=== PATIENT | male | born 1930 | race Caucasian/White ===

== ENCOUNTER 2017-07-02 11:41 | Inpatient (IN) | payer OTHER ==
[~2017-07-02] VITALS: Ht 175.3 cm; Wt 101.2 kg
--- NOTE | ~2017-07-02 | HC ---
[facility] [place] [place] [address] CONSULTATION Name: DONNELL ORTIZ Room #: 455-P ADM IN M.R.#: [id number] Admission: 07/02/17 Attend Phys: Ирина Zhang Discharge: Date of : [birth year] Report #: [id number] THIS REPORT FOR: //name// CC: FAM unknown Ирина Zhang DATE OF SERVICE: 07/02/2017 ATTENDING PHYSICIAN: Dr. Quiros. REASON FOR CONSULTATION: Elevated creatinine. HISTORY OF PRESENT ILLNESS: An 87-year-old gentleman, reasonably healthy except for some prostatic hypertrophy, was initially hospitalized several months ago at [facility] with obstructive uropathy, urinary tract infection, was treated. He developed very severe C. diff, which lingered for some time. He is finally over that. He has recently finished taking oral vancomycin. Has no more diarrhea. He is otherwise doing well, was out working in the yard yesterday, came inside and developed shaking chills, was taken to [facility] and there, was found to have a urinary tract infection, developed worsening leukocytosis and his creatinine, which was 1.3, diana to 1.7. He was transferred. PAST MEDICAL HISTORY: Has COPD, history of atrial fibrillation, recent UTI and C. diff as well as the prostatic hypertrophy. MEDICATIONS: As mentioned, his home medications include Breo Ellipta inhaler, furosemide 40 mg b.i.d., levothyroxine 150 mcg daily, Lopressor 50 mg daily, potassium 10 mEq b.i.d., simvastatin 40 mg daily, Flomax 0.4 mg daily, Spiriva, and Zanaflex. He also was treated with ceftriaxone IV at [facility] yesterday. Apparently, he also received some Zosyn and Lovenox. SOCIAL HISTORY: Former smoker. Lives at home with his significant other. has passed. He is . FAMILY HISTORY: Unremarkable. REVIEW OF SYSTEMS: GENERAL: He is feeling reasonably well. EYES: His vision is okay. ENT: Hearing okay, swallows okay. ENDOCRINE: No diabetes. He does have thyroid disease, on replacement. RESPIRATORY: No shortness of breath, pleuritic pain, hemoptysis. CARDIAC: No chest pain or swelling in the legs. GASTROINTESTINAL: No nausea, vomiting, diarrhea or bloody stools. [facility] [address] [place] [address] CONSULTATION Name: DONNELL ORTIZ Room #: 455-P [facility] IN M.R.#: [id number] Admission: 07/02/17 Attend Phys: Ирина Zhang Discharge: Date of : [birth year] Report #: [id number] GENITOURINARY: Little bit of a sluggish stream, but not too bad. NEUROLOGIC: Denies seizure, syncope or stroke. He did have some head trauma years ago that did require some surgery. PHYSICAL EXAMINATION: GENERAL: Somewhat overweight elderly gentleman, gave me a reasonably good history. SKIN: Unremarkable. SKELETAL: He is overweight. HEENT: Extraocular movements are full. Vision intact. Hearing intact. Mucous membranes moist. NECK: Supple, no JVD. CHEST: Clear to auscultation. HEART: Regular. ABDOMEN: Soft and nontender. EXTREMITIES: Show no peripheral edema. NEUROLOGIC: Grossly intact. LABORATORY DATA: Hemoglobin 12.9, white count 19.1, potassium 4, creatinine 1.8, BUN 25, albumin 2.6. ASSESSMENT AND PLAN: 1. Chronic kidney disease, appears to have a chronic kidney disease with a stated baseline creatinine of 1.3, although this may indeed be a little bit elevated with his acute illness. Now, he is up to 1.7 with urinary infection. IV fluids should take care of this problem. Renal sonogram certainly would not hurt just to rule out any sort of obstructive situation here and appropriate antibiotics per primary service. Recognize that he could indeed have somewhat of a resistant organism as he has recently been treated with quite a bit of antibiotics apparently. 2. Benign prostatic hypertrophy, on Flomax. 3. Chronic obstructive pulmonary disease, on inhalers. 4. History of atrial fibrillation. I do not see any EKGs at the current time. <ELECTRONICALLY SIGNED> By: Matt Garduno MD 07/04/17 1102 [id number] Matt Garduno MD /nt
[2017-07-02 12:14] VITALS: BP 113/59
[2017-07-02 16:08] LABS: HEMATOCRIT 38.8 % (42.0-52.0); HEMOGLOBIN 12.9 gm/dL (14.0-18.0); MCH 31.5 pg (26.0-34.0); MCHC 33.3 g/dL (28.0-37.0); MCV 94.4 fL (80.0-100.0); RBC 4.11 mil/uL (4.50-6.00); RDW 14.5 % (10.5-14.5); WBC 19.1 thou/uL (4.0-11.0)
[2017-07-02 16:16] LABS: CALCIUM 8.2 mg/dL (8.5-10.1); CREATININE 1.8 mg/dL (0.7-1.3)
[2017-07-02 16:17] VITALS: BP 141/58
[2017-07-02 16:22] LABS: ALBUMIN 2.6 g/dL (3.4-5.0); TOTAL BILIRUBIN 0.8 mg/dL (<0.1-1.0); TOTAL PROTEIN 5.8 g/dL (6.4-8.2)
[2017-07-02] MEDS ORDERED: VANCOMYCIN HCL125 MG PO (16:27)
[2017-07-02] MEDS ORDERED: POTASSIUM CHLO10 MEQ PO (16:29)
[2017-07-02] MEDS ORDERED: LASIX 40 MG TAB40 M2 PO (16:30)
[2017-07-02] MEDS ORDERED: METOPROLOL SUCC50 MG PO (16:31)
[2017-07-02] MEDS ORDERED: VENTOLIN HFA 1818 GM INH (16:34)
[2017-07-02] MEDS ORDERED: FLOMAX0.4 MG PO (16:34)
[2017-07-02] MEDS ORDERED: SYNTHROID150 MCG PO (16:35)
[2017-07-02] MEDS ORDERED: SIMVASTATIN40 MG PO (16:36)
[2017-07-02] MEDS ORDERED: MELATONIN5 M1 PO (16:40)
[2017-07-02 19:51] VITALS: BP 121/50
[2017-07-02 20:14] LABS: URINE BILIRUBIN NEGATIVE (Negative); URINE BLOOD 1+ (Negative); URINE CLARITY CLEAR; URINE COLOR YELLOW; URINE GLUCOSE-RANDOM* NEGATIVE (Negative); URINE KETONES NEGATIVE (Negative); URINE LEUKOCYTES 3+ (Negative); URINE NITRITE NEGATIVE (Negative); URINE PROTEIN (DIPSTICK) TRACE (Negative); URINE SPECIFIC GRAVITY 1.015 (1.005-1.035); URINE UROBILINOGEN 0.2 E.U./dl (0.2-1.0)
[2017-07-02 20:50] LABS: CASTS None Seen /LPF (None Seen); CRYSTALS None Seen /LPF (None Seen); SQUAMOUS 4-10 Moderate /LPF (0-3)
[2017-07-02 20:51] LABS: URINE RBC 0-2 Rare /HPF (0-2)
[2017-07-02 20:52] LABS: BACTERIA 1-9 Few /HPF (None Seen)
[2017-07-02 23:38] VITALS: BP 129/56
[2017-07-03 03:47] VITALS: BP 107/71
[2017-07-03 05:23] LABS: BASOPHILS 0.3 % (0.0-2.0); EOSINOPHILS 0.4 % (0.0-3.0); HEMATOCRIT 39.2 % (42.0-52.0); HEMOGLOBIN 12.9 gm/dL (14.0-18.0); LYMPHOCYTES 8.8 % (24.0-44.0); MCH 31.4 pg (26.0-34.0); MCV 95.1 fL (80.0-100.0); PLATELET COUNT 140 thou/uL (150-400); POLYS 83.5 % (36.0-66.0); RBC 4.12 mil/uL (4.50-6.00); RDW 14.6 % (10.5-14.5); WBC 15.5 thou/uL (4.0-11.0)
[2017-07-03 05:33] LABS: ALBUMIN 2.5 g/dL (3.4-5.0); CALCIUM 8.5 mg/dL (8.5-10.1); CREATININE 1.6 mg/dL (0.7-1.3); PHOSPHORUS 2.2 mg/dL (2.5-4.9); POTASSIUM 3.9 mmol/L (3.5-5.1)
[2017-07-03 08:25] VITALS: BP 156/49
[2017-07-03 16:20] VITALS: BP 142/86
[2017-07-03 20:21] VITALS: BP 153/85
[2017-07-04 03:15] VITALS: BP 140/83
[2017-07-04 06:13] LABS: ALBUMIN 2.7 g/dL (3.4-5.0); CALCIUM 8.7 mg/dL (8.5-10.1); CREATININE 1.2 mg/dL (0.7-1.3); PHOSPHORUS 2.1 mg/dL (2.5-4.9); POTASSIUM 3.7 mmol/L (3.5-5.1)
[2017-07-04 08:33] LABS: HEMATOCRIT 42.4 % (42.0-52.0); MCH 31.4 pg (26.0-34.0); MCHC 33.1 g/dL (28.0-37.0); MCV 94.9 fL (80.0-100.0); RBC 4.47 mil/uL (4.50-6.00); RDW 14.4 % (10.5-14.5); WBC 17.9 thou/uL (4.0-11.0)
[2017-07-04 09:31] VITALS: BP 149/76
[2017-07-04] MEDS ORDERED: CEFDINIR300 MG PO (11:21)
[2017-07-04 12:19] VITALS: BP 149/76
== END 2017-07-04 13:03 | disposition home or self-care (01) | DRG 871 ==
LOC: 4W 11:41 → ENTRNSPT 07-04 12:48 → EDTRNSPTSTS 07-04 12:51 → 4W 07-04 13:03
PROVIDERS: Hospitalist; Internal Medicine Nephrology
DX: A41.9 Sepsis, unspecified organism (principal); J96.01 Acute respiratory failure with hypoxia; E43 Unspecified severe protein-calorie malnutrition; N17.9 Acute kidney failure, unspecified; N39.0 Urinary tract infection, site not specified; N12 Tubulo-interstitial nephritis, not specified as acute or chronic; I48.91 Unspecified atrial fibrillation; N18.9 Chronic kidney disease, unspecified; N40.0 Benign prostatic hyperplasia without lower urinary tract symptoms; J44.9 Chronic obstructive pulmonary disease, unspecified; D72.829 Elevated white blood cell count, unspecified; E03.9 Hypothyroidism, unspecified; Z68.32 Body mass index [BMI] 32.0-32.9, adult; Z87.891 Personal history of nicotine dependence; Z79.899 Other long term (current) drug therapy
CPT/HCPCS: 10047